=== PATIENT | male | born 1985 | race Caucasian/White ===

== ENCOUNTER 2021-10-04 16:49 | Emergency (ER) | payer OTHER, SELFPAY ==
[2021-10-04 16:52] VITALS: BP 126/70; PULSE 91; RESP 18; TEMP 36.6; O2SAT 98; BMI 22.8
[2021-10-04 16:58] VITALS: BP 112/77; PULSE 92; RESP 20; O2SAT 93
[2021-10-04 17:00] VITALS: BP 113/81; PULSE 87; RESP 23; O2SAT 95
--- NOTE | 2021-10-04 17:07 | ED_ITS ---
HPI - Seizure General: Chief Complaint: Seizure Stated Complaint: SEIZURE Time Seen by Provider: 10/04/21 16:51 Source: patient Mode of arrival: ambulatory Limitations: no limitations History of Present Illness: HPI Narrative: 36-year-old male presents emergency room with a complaint of seizures. He tells me he has had 15 seizures today he is on trazodone lamotrigine valproic acid and pregabalin. He states he has seen a neurologist at [facility] in the past but he does not feel its been helpful. States his seizures began about 4 months ago. While he was in the room he warned me that he was about to have another seizure had a seizure that lasted about 7 to 10 seconds immediately after it sees for I asked him what happened he was able to raise his finger at me. He paused for a bit and then told me he had another seizure at asked him if that was the first seizure he had today he told me now it was the 16th seizure he has had this all occurred within about 5 to 10 seconds of his seizure ending. He reported to me that all the seizures he has had today like the one I had just witnessed. complaint: seizure Description of Episode: tonic-clonic movement Witnessed: Yes - by Bystander Seizure History: Yes Associated symptoms: Deny chest pain, chills, confusion, cough, diaphoresis, fever(s), anorexia, malaise, rash, short of breath, syncope or weakness Treatments prior to arrival: none Review of Systems Const: Denies: fever(s), chills, malaise or diaphoresis ENMT: Denies: throat pain, ear or mastoid pain, nasal discharge or nasal congestion Card: Denies: chest pain or syncope Resp: Denies: dyspnea, productive cough or non-productive cough GI: Denies: abdominal pain, nausea, vomiting, hematemesis, coffee ground emesis, diarrhea, constipation, bloating, hematochezia or melena : Denies: flank pain, dysuria, urinary frequency or urinary urgency Skin/Breast: Denies: rash or pruritus Neuro: Reports: other (Multiple seizures.); Denies: confusion [facility] ED PFSH: Medical History (Updated 10/04/21 @ 17:41 by Max Fisher DO) Seizures Social History (Updated 10/04/21 @ 17:12 by Max Fisher DO) Smoking and tobacco status: current every day smoker Alcohol intake: never Physical Exam Const: COMMON NORMALS: no acute distress GENERAL APPEARANCE: cooperative and comfortable ORIENTATION/CONSCIOUSNESS: Yes awake, Yes oriented to person, Yes oriented to place and Yes oriented to time HENMT: COMMON NORMALS: normocephalic, atraumatic, hearing grossly normal bilaterally, external ears normal, EAC's normal, TM's normal bilaterally, Normal nasal mucous membranes and turbinates present, moist oral mucous membranes and oropharynx normal HEAD & SCALP: normocephalic and atraumatic NOSE: Normal nasal mucous membranes and turbinates present EXTERNAL EAR: Yes external ears normal EXTERNAL AUDITORY CANAL: EAC's normal TYMPANIC MEMBRANE: TM's normal bilaterally Eye: COMMON NORMALS: Equal, round and reactive pupils present, EOMs intact bilaterally, conjunctivae normal and no scleral icterus CONJUNCTIVA: Yes conjunctivae normal PUPIL: Yes Equal, round and reactive pupils present Neck/C-Spine: COMMON NORMALS: full ROM, no lymphadenopathy, supple and no JVD Lymph: LYMPHATIC: no lymphadenopathy noted and no lymphedema noted Resp: COMMON NORMALS: normal respiratory effort, No retractions, No use of accessory muscles and clear to auscultation bilaterally AUSCULTATION: clear to auscultation bilaterally Cardio: COMMON NORMALS: no JVD, regular rate, regular rhythm and No murmurs p resent (Cardio) RATE: regular rate RHYTHM: regular rhythm GI: COMMON NORMALS: Soft to palpation and No hepatosplenomegaly present AUSCULTATION: Yes normoactive bowel sounds PALPATION: Yes Soft to palpation, No Tenderness to palpation present (GI), No Guarding due to palpation present (GI) and Yes No hepatosplenomegaly present Extremity: COMMON NORMALS: normal to inspection, capillary refill normal, no clubbing, cyanosis or edema, no calf tenderness and no pedal edema Neuro: SENSORIUM/ORIENTATION: Yes oriented to person, Yes oriented to place and Yes oriented to time Skin: COMMON NORMALS: no rashes or lesions noted GENERAL SKIN EXAM: no rashes or lesions noted Course Vital Signs: Vital signs: Vital Signs Temperature 97.9 F 10/04/21 16:52 Pulse Rate 87 10/04/21 17:00 Respiratory Rate 23 H 10/04/21 17:00 Blood Pressure 113/81 10/04/21 17:00 Pulse Oximetry 95 10/04/21 17:00 Oxygen Delivery Me thod 10/04/21 16:52 MDM - Seizure MDM Narrative Medical decision making narrative: Seizure witnessed at the bedside and it [facility] the patient had no postictal phase. Discussed with neurologist from [facility] who is on-call. 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 He does not recommend escalation in any medications and instead recommends that they see him back in the office. We will discharge patient home and have him follow-up with neurology in [place]. Medical Records Attestation: I reviewed the patient's medical records. Lab Data Attestation: I reviewed the patient's lab results. Result diagrams: 10/04/21 17:05 10/04/21 17:05 Labs: Laboratory Results WBC 9.1 10^3/uL (4.0-10.0) 10/04/21 17:05 RBC 5.15 10^6/uL (4.1-5.3) 10/04/21 17:05 Hgb 15.7 g/dL (11.7-16.6) 10/04/21 17:05 Hct 46.3 % (42.0-52.0) 10/04/21 17:05 MCV 89.9 fl (80-94) 10/04/21 17:05 MCH 30.5 pg (28.0-34.0) 10/04/21 17:05 MCHC 33.9 g/dL (30.0-36.0) 10/04/21 17:05 RDW 12.1 % (12.1-15.1) 10/04/21 17:05 Plt Count 246 10^3/cmm (130-400) 10/04/21 17:05 MPV 8.9 fL (7.4-10.4) 10/04/21 17:05 Neut % (Auto) 58.6 % 10/04/21 17:05 Lymph % (Auto) 28.3 % 10/04/21 17:05 Beauregard % (Auto) 8.8 % 10/04/21 17:05 Eos % (Auto) 2.1 % 10/04/21 17:05 Baso % (Auto) 0.9 % 10/04/21 17:05 Neut # (Auto) 5.36 10^3/uL (1.8-7.7) 10/04/21 17:05 Lymph # (Auto) 2.6 10^3/uL (0.8-4.8) 10/04/21 17:05 Beauregard # (Auto) 0.8 10^3/uL (0.2-0.9) 10/04/21 17:05 Eos # (Auto) 0.2 10^3/uL (0.0-0.8) 10/04/21 17:05 Baso # (Auto) 0.1 10^3/uL (0.0-0.1) 10/04/21 17:05 Nucleated RBC % (auto) 0 % 10/04/21 17:05 Nucleated RBCs # 0.0 /100WBC 10/04/21 17:05 Sodium 139 mmol/L (136-145) 10/04/21 17:05 Potassium 3.7 mmol/L (3.5-5.1) 10/04/21 17:05 Chloride 101 mmol/L (98-107) 10/04/21 17:05 Carbon Dioxide 25 mmol/L (22-29) 10/04/21 17:05 Anion Gap 16.7 (5-19) 10/04/21 17:05 BUN 8 mg/dL (6-20) 10/04/21 17:05 Creatinine 1.2 mg/dL (0.7-1.2) 10/04/21 17:05 GFR Calculation 68.1 mL/min (90-130) L 10/04/21 17:05 Glucose 113 mg/dL (65-115) 10/04/21 17:05 Calculated Osmolality 287 mOsm/kg (285-295) 10/04/21 17:05 Calcium 9.3 mg/dL (8.5-10.5) 10/04/21 17:05 Creatine Kinase 51 U/L (39-308) 10/04/21 17:05 Valproic Acid 2.8 ug/mL (50-100) L 10/04/21 17:05 Discharge Plan Discharge Patient Disposition: Home 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 Coding Level of Care Code ED [employer] Intern for [employer] Fwd Exam Comprehensive
[2021-10-04 17:16] LABS: Basophils # 0.1 10^3/uL (0.0-0.1); Basophils % 0.9 %; Eosinophils # 0.2 10^3/uL (0.0-0.8); Eosinophils % 2.1 %; Hematocrit 46.3 % (42.0-52.0); Hemoglobin 15.7 g/dL (11.7-16.6); Lymphocytes # 2.6 10^3/uL (0.8-4.8); Lymphocytes % 28.3 %; Mean Corpuscular HGB Conc 33.9 g/dL (30.0-36.0); Mean Corpuscular Hemoglobin 30.5 pg (28.0-34.0); Mean Corpuscular Volume 89.9 fl (80-94); Mean Platelet Volume 8.9 fL (7.4-10.4); Monocytes # 0.8 10^3/uL (0.2-0.9); Monocytes % 8.8 %; Neutrophils # 5.36 10^3/uL (1.8-7.7); Neutrophils % 58.6 %; Nucleated Red Blood Cells % 0 %; Platelet Count 246 10^3/cmm (130-400); Red Blood Count 5.15 10^6/uL (4.1-5.3); Red Cell Distribution Width 12.1 % (12.1-15.1); White Blood Count 9.1 10^3/uL (4.0-10.0)
[2021-10-04 17:30] VITALS: BP 113/81; PULSE 90; RESP 16; O2SAT 95
[2021-10-04 17:47] LABS: Valproic Acid Level 2.8 ug/mL (50-100)
[2021-10-04 17:48] LABS: Anion Gap 16.7 (5-19); Blood Urea Nitrogen 8 mg/dL (6-20); Calcium 9.3 mg/dL (8.5-10.5); Carbon Dioxide 25 mmol/L (22-29); Chloride 101 mmol/L (98-107); Creatine Phosphokinase 51 U/L (39-308); Glomerular Filtration Rate 68.1 mL/min (90-130); Glucose 113 mg/dL (65-115); Osmolality Calculated 287 mOsm/kg (285-295); Potassium 3.7 mmol/L (3.5-5.1); Sodium 139 mmol/L (136-145)
--- NOTE | 2021-10-04 17:59 | PC.NURSE ---
MD called patient neurologist, he stated that the seizures are functional and not to admin any medications.
[2021-10-04] MEDS: acetaminophen 500 mg Tablet 1000 MG PO (18:02)
[2021-10-08 10:28] LABS: Lamotrigine (Lamictal) Level <0.5 mcg/mL (4.0-18.0)
== END 2021-10-04 18:12 | disposition home or self-care (01) ==
PROVIDERS: Emergency Provider Family Medicine
DX: R29.818 Other symptoms and signs involving the nervous system (principal); F17.210 Nicotine dependence, cigarettes, uncomplicated
CPT/HCPCS: 80048; 80164; 80175; 82550; 85025; 99283

== ENCOUNTER → 2024-08-06 11:14 | Outpatient (BNVA) | payer OTHER, SELFPAY | PROVIDERS: Visit Provider Psychiatry & Neurology Psychiatry | DX: F33.2 Major depressive disorder, recurrent severe without psychotic features (principal) | CPT/HCPCS: 80061; 83036 ==

== ENCOUNTER 2025-02-05 10:19 | Outpatient (CLI) | payer OTHER, MEDICAID, SELFPAY ==
[2024-08-07 11:20] VITALS: BP 129/92; BMI 23.6
--- NOTE | 2025-02-05 10:31 | XR_ITS ---
WS: [id number] Thoracic spine, AP and lateral views, 02/05/2025 Clinical Data: THORACIC SPONDYLOSIS Comparison: None. Findings: No compression fractures are seen. The disc heights are normal. The paravertebral regions are normal. XR/XR thoracic spine 2V [id number] Impression: Negative thoracic spine.
--- NOTE | 2025-02-05 10:40 | XR_ITS ---
WS: [id number] Cervical spine, 6 views including both obliques and lateral views in flexion, extension and neutral position, 02/05/2025 Clinical Data: CERVICAL SPONDYLOSIS Comparison: None. Findings: No compression fractures are seen. There is disc narrowing at C6-C7 with minimal osteophytes. There is minimal bilateral neural foraminal encroachment at C6-C7. No instability occurs on flexion or extension. There is no prevertebral soft tissue swelling. The odontoid is unremarkable. The soft tissues of the neck and the lung apices are normal. XR/XR cervical spine min 6V [id number] Impression: 1. Degenerative disc narrowing at C6-C7 with minimal osteophytes. 2. Mild bilateral foraminal encroachment at C6/C7. 3. No instability on flexion or extension.
--- NOTE | 2025-02-05 10:41 | XR_ITS ---
WS: [id number] Lumbar spine, 6 views including both obliques and lateral views in flexion, extension and neutral position, 02/05/2025 Clinical Data: LUMBOSACRAL SPONDYLOSIS Comparison: None. Findings: No compression fractures or subluxation is seen. No disc space narrowing is seen. The transverse processes and SI joints are normal. The oblique images show no spondylolysis. No instability occurs on flexion or extension. XR/XR lumbar spine 6V w f/e [id number] Impression: 1. Negative lumbar spine. 2. No spondylolysis. 3. No instability on flexion or extension.
== END 2025-02-05 10:20 | disposition home or self-care (01) ==
PROVIDERS: PCP Family Medicine; Visit Provider Student in an Organized Health Care Education/Training Program
DX: M47.814 Spondylosis without myelopathy or radiculopathy, thoracic region (principal); M50.323 Other cervical disc degeneration at C6-C7 level; M48.02 Spinal stenosis, cervical region; M99.71 Connective tissue and disc stenosis of intervertebral foramina of cervical region
CPT/HCPCS: 72052; 72070; 72114